=== PATIENT | male | born 1995 | race Caucasian/White ===

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

== ENCOUNTER 2018-06-13 17:48 | Emergency (ER) | payer SELFPAY ==
[~2018-06-13] VITALS: Wt 81.0 kg
[2018-06-13] MEDS ORDERED: SOD CHLORIDE 0.9% 1,000 ML IV STA (19:40)
[2018-06-13] MEDS ORDERED: ONDANSETRON 4 MG INJ IV STA (19:40)
--- NOTE | 2018-06-13 20:02 | ERD ---
ER Documentation Chief Complaint Chief Complaint NAUSEA FOR THE PAST 2 WKS AND GEN FATIGUE, NO DIARRHEA. NO FEVERS HPI 23-year-old male presented to the emergency department complaining of intermittent nausea and lightheadedness for the past 1 week. Patient also reports he has been sleeping more than usual. He states he has been drinking a significant amount of water. His feelings of lightheadedness last for approximately 1 minute and then spontaneously resolved. He denies any syncope, vomiting, diarrhea, abdominal pain, syncope, palpitations, chest pain, or other symptoms at this time. ROS All systems reviewed and are negative except as per history of present illness. Medications Home Meds Active Scripts Ondansetron (Ondansetron Odt) 4 Mg Tab.rapdis, 4 MG PO Q6H PRN for NAUSEA AND/OR VOMITING, #10 TAB Prov:CORTNEY WEN PA-C 06/13/18 Allergies Allergies: Coded Allergies: No Known Drug Allergies (Verified Allergy, Unknown, 06/13/18) PMhx/Soc Medical and Surgical Hx: pt denies Medical Hx, pt denies Surgical Hx History of Surgery: Yes (tonscillectomy) Anesthesia Reaction: No Hx Respiratory Disorders: No Hx Cardiac Disorders: No Hx Psychiatric Problems: No Hx Miscellaneous Medical Probl: No Hx Alcohol Use: No Hx Substance Use: No Hx Tobacco Use: No Smoking Status: Never smoker FmHx Family History: No diabetes Physical Exam Vitals Vital Signs Date Temp Pulse Resp B/P (MAP) Pulse Ox O2 O2 Flow FiO2 Time Delivery Rate 06/13/18 98.2 57 20 107/57 100 Room Air 22:07 (74) 06/13/18 97.8 59 16 140/61 98 18:03 (87) Physical Exam Const: No acute distress Head: Atraumatic Eyes: Normal Conjunctiva ENT: Normal External Ears, Nose and Mouth. Neck: Full range of motion. No meningismus. Resp: Clear to auscultation bilaterally Cardio: Regular rate and rhythm, no murmurs Abd: Soft, non tender, non distended. Normal bowel sounds. No rebound tenderness or guarding pain at McBurney's point tenderness. Skin: No petechiae or rashes Back: No midline or flank tenderness Ext: No cyanosis, or edema Neur: Awake and alert. No neurological deficits noted. Psych: Normal Mood and Affect Result Diagram: 06/13/18199906/13/181999 Results 24 hrs Laboratory Tests Test 06/13/18 20:00 06/13/18 20:52 White Blood Count 7.9 10^3/ul Red Blood Count 5.20 10^6/ul Hemoglobin 13.9 g/dl Hematocrit 45.1 % Mean Corpuscular Volume 86.7 fl Mean Corpuscular Hemoglobin 26.7 pg Mean Corpuscular Hemoglobin Concent 30.8 g/dl Red Cell Distribution Width 13.0 % Platelet Count 204 10^3/UL Mean Platelet Volume 9.9 fl Immature Granulocytes % 0.400 % Neutrophils % 57.9 % Lymphocytes % 28.9 % Monocytes % 7.6 % Eosinophils % 4.7 % Basophils % 0.5 % Nucleated Red Blood Cells % 0.0 /100WBC Immature Granulocytes # 0.030 10^3/ul Neutrophils # 4.6 10^3/ul Lymphocytes # 2.3 10^3/ul Monocytes # 0.6 10^3/ul Eosinophils # 0.4 10^3/ul Basophils # 0.0 10^3/ul Nucleated Red Blood Cells # 0.0 10^3/ul Sodium Level 143 mmol/L Potassium Level 4.1 mmol/L Chloride Level 105 mmol/L Carbon Dioxide Level 31 mmol/L Anion Gap 7 Blood Urea Nitrogen 15 mg/dl Creatinine 0.86 mg/dl Est Glomerular Filtrat Rate mL/min > 60 mL/min Glucose Level 72 mg/dl Calcium Level 9.3 mg/dl Total Bilirubin 0.2 mg/dl Direct Bilirubin 0.00 mg/dl Indirect Bilirubin 0.2 mg/dl Aspartate Amino Transf (AST/SGOT) 22 IU/L Alanine Aminotransferase (ALT/SGPT) 23 IU/L Alkaline Phosphatase 55 IU/L Total Protein 6.8 g/dl Albumin 4.0 g/dl Globulin 2.80 g/dl Albumin/Globulin Ratio 1.42 Urine Color YELLOW Urine Clarity SLIGHTLY CLOUDY Urine pH 6.0 Urine Specific [place] 1.030 Urine Ketones TRACE mg/dL Urine Nitrite NEGATIVE mg/dL Urine Bilirubin NEGATIVE mg/dL Urine Urobilinogen 1+ mg/dL Urine Leukocyte Esterase TRACE Juan/ul Urine Microscopic RBC 1 /HPF Urine Microscopic WBC 2 /HPF Urine Squamous Epithelial Cells FEW /HPF Urine Calcium Oxalate Crystals FEW /HPF Urine Amorphous Crystals FEW /HPF Urine Bacteria FEW /HPF Urine Mucus FEW /HPF Urine Hemoglobin NEGATIVE mg/dL Urine Glucose NEGATIVE mg/dL Urine Total Protein NEGATIVE mg/dl Current Medications Medications Dose Sig/Karen Start Time Status Last (Trade) Ordered Route PRN Stop Time Admin Dose Reason Admin Sodium 1,000 ml @ Q1H STAT 06/13/18 DC 06/13/18 Chloride 1,000 mls/hr IV 19:40 19:54 06/13/18 20:39 Ondansetron 4 mg ONCE STAT 06/13/18 DC 06/13/18 HCl (Zofran IV 19:40 19:53 Inj) 06/13/18 19:42 Procedures/MDM 23-year-old male presented to the emergency department planing of intermittent lightheadedness and nausea. Physical examination is unremarkable. CBC showed no evidence of significant leukocytosis or anemia. CMP showed no significant a cute abnormalities. Patient was administered 1 L IV normal saline in the department as well as IV Zofran and significantly improved on reevaluation. Symptoms likely secondary to [id number] etiology. Differential diagnosis included but were not limited to electrolyte disturbance, anemia, dehydration, and others. Patient was stable and appropriate for discharge and further outpatient management. The patient was in agreement with the diagnosis, plan, need for follow-up, return precautions. Departure Diagnosis: Primary Impression: Dizziness Additional Impression: Nausea Condition: Fair Patient Instructions: Possible Causes of Dizziness or Fainting, Dizziness, Unk Cause Additional Instructions: Follow up with your PCP within the next 1-3 days for a repeat evaluation. If you require a referral to a specialist, your Primary Care Provider may be able to provide this for you. In most patient cases, a referral is not required. If you have further questions regarding this matter, please ask your Primary Care Provider. Return the the emergency department immediately if symptoms worsen or change. If you have any questions regarding medications, ask your pharmacist or us before you leave. If any adverse reactions, occur while taking your medications, discontinue the treatment and return to the emergency department immediately. If any new or worsening symptoms, uncontrolled fevers, or other unexplained symptoms occur, return to the emergency department immediately. Take your medications as directed, and complete the entire course of treatment. CORTNEY WEN PA-C Jun 13, 2018 20:02
[2018-06-13 22:07] VITALS: BP 107/57; PULSE 57; RESP 20
[2018-06-13] MEDS ORDERED: ONDA4TAB14 PO (22:10)
== END 2018-06-13 22:18 | disposition home or self-care (01) ==
LOC: FTE 17:48
DX: R42 Dizziness and giddiness (principal)
CPT/HCPCS: 36415; 80053; 81001; 85025; 96361; 96374; 99284; J2405; J7030